=== PATIENT | male | born 1995 | race Caucasian/White ===

== ENCOUNTER 2023-09-25 18:01 | Emergency (ER) | payer OTHER, SELFPAY ==
[2023-09-25] MEDS ORDERED: Ibuprofen 200 MG TAB ONE (19:22)
== END 2023-09-25 19:40 | disposition home or self-care (01) ==
LOC: CSHERS 18:01
DX: S39.012A Strain of muscle, fascia and tendon of lower back, initial encounter (principal); V43.52XA Car driver injured in collision with other type car in traffic accident, initial encounter
CPT/HCPCS: 72100